=== PATIENT | female | born 2000 | race Two or more races ===

== ENCOUNTER 2018-11-08 11:48 | Emergency (ER) | payer OTHER ==
[~2018-11-08] VITALS: Ht 152.4 cm; Wt 40.8 kg
[2018-11-08 12:19] VITALS: BP 106/70
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
[2018-11-08] MEDS ORDERED: NAPROXEN500 M2 ORAL (13:13)
[2018-11-08] MEDS ORDERED: ROBAXIN500 MG PO (13:13)
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
[2018-11-08] MEDS ORDERED: Naproxen 500mg tab ORAL ONE (13:15)
[2018-11-08 13:48] VITALS: BP 110/70
--- NOTE | 2018-11-08 13:51 | NUR ---
ER DISCHARGE NOTE: Patient is cleared to be discharged per ERMD, pt is aox4, on room air, with stable vital signs. pt was given dc and prescription instructions, pt was able to verbalize understanding, pt id band and iv site removed without complications. pt is able to ambulate with steady gait. pt took all belongings.
== END 2018-11-08 13:55 | disposition home or self-care (01) ==
LOC: EMR 12:52
DX: S16.1XXA Strain of muscle, fascia and tendon at neck level, initial encounter (principal); V43.52XA Car driver injured in collision with other type car in traffic accident, initial encounter; Y92.410 Unspecified street and highway as the place of occurrence of the external cause
CPT/HCPCS: 81025; 99283